=== PATIENT | female | born 1945 | race Caucasian/White ===

== ENCOUNTER 2024-12-07 15:30 | Emergency (ER) | payer MEDICARE, OTHER ==
[~2024-12-07] VITALS: Ht 162.6 cm; Wt 80.8 kg
[2024-12-07 15:41] VITALS: BP 151/77; PULSE 107; RESP 16; O2SAT 96
[2024-12-07] MEDS ORDERED: METH-798 PO (18:12)
[2024-12-07] MEDS: baclofen 10mg tablet PO STA (18:18)
[2024-12-07 18:23] VITALS: TEMP 98
== END 2024-12-07 18:25 | disposition home or self-care (01) ==
LOC: ER 15:31
DX: M43.17 Spondylolisthesis, lumbosacral region (principal)
CPT/HCPCS: 72110; 99283